=== PATIENT | female | born 1970 | race Caucasian/White ===

== ENCOUNTER 2021-05-24 16:31 | Emergency (ER) | payer OTHER ==
[~2021-05-24] VITALS: Ht 170.2 cm; Wt 94.6 kg
--- NOTE | ~2021-05-24 | EMS ---
[facility] [address] [place] [address] EMS Patient Care Report Name: SHAHID SHIRLEY Room #: REG LEXIS Branham#: [id number] Admission: 05/24/21 Attend Phys: Discharge: Date of : 68 Report #: [id number] THIS REPORT FOR: //name// Report Transmitted: 05/24/2021 16:46 EMS Care Summary [facility] Incident [id number] @ 05/24/2021 15:45 Incident Location [address] [place] [address] Patient SHAHID SHIRLEY Female, 50 Years 1970 Patient Address [address] [place] [address] Patient History None Reported, Patient Allergies No known allergies, Patient Medications None Reported, Chief Complaint Physician states patient had allergic rxn. Disposition Transported No Lights/[place] Reason Allergic Reaction/Stings Transported To [facility] Narrative Arrived to find a 50 yr old male patient laying in a recovery bay at the [facility] in no obvious acute distress on a simple face mask in the care of E[facility]. According to the attending Anesthesiologist the patient had rotator cuff surgery on her right wrist. About 1400 the patient was given an [facility] [address] [place] [address] EMS Patient Care Report Name: SHAHID SHIRLEY Room #: REG LEXIS Branham#: [id number] Admission: 05/24/21 Attend Phys: Discharge: Date of : 68 Report #: [id number] IV dose of "ancef." Around 1430 when the patient was in the recovery room they noticed her blood pressure dropped into the 70s, she had hives, and a "six second run of asystole." Staff states they briefly bagged the patient, gave her a dose of Benadryl, Pepcid, a fluid bolus, and steroids. Staff contacted [facility] and the ED physician ordered .1 mg of Epinephrine IV which shot the patient's blood pressure up to about 200mm/Hg. EMS was contacted a short time later because staff does not have the resources to monitor the patient. Upon our arrival the patient is just complaining of being tired and is very sleepy. Patient does not have any hives, itching, or redness. A: See assessment tab. Physical exam and vital signs were performed by E31 prior to our arrival. Patient was lifted onto the cot. Moved to unit. En route to [facility]. Vital signs and ECG were monitored during transport. We contacted [facility] on the [employer] radio. Patient had a slight downward trend to her BP during the short transport. Patient slept for the transport. Patient was verbally responsive upon arrival at [facility] and the cot sheet was was utilized to transfer the patient in room 10. Report given to ED RN. Patient's physician stated [facility] was the transport destination. Initial Vitals @PTAP: 54,R: 12,BP: 219/93,GCS: 14,Glucose: 133,SpO2: 99,Revised Trauma: 12, @PTAP: 73,R: 14,BP: 112/74,GCS: 14,SpO2: 100,Revised Trauma: 12, @16:21P: 61,R: 16,BP: 97/61,Pain: 0/10,GCS: 14,SpO2: 98,Revised Trauma: 12,IN Suspected: false @16:26P: 66,R: 16,BP: 106/72,Pain: 0/10,GCS: 14,SpO2: 97,Revised Trauma: 12,IN Suspected: false @16:11P: 64,R: 12,BP: 109/69,Pain: 0/10,GCS: 15,Temp: 97.3F,SpO2: 96,Revised Trauma: 12,IN Suspected: false Impression Anaphylaxis Procedures @PTAIV Therapy - Normal Saline (.9% NaCl) 1000cc (20 ga) Site: Forearm-Left Response: UnchangedSucceeded @16:07 Surgical Mask on Patient Response: Unchanged Timeline [employer],IV Therapy - Normal Saline (.9% NaCl) 1000cc 20 ga Site: Forearm-Left,Response: UnchangedSucceeded, [facility] [address] [place] [address] EMS Patient Care Report Name: SHAHID SHIRLEY Room #: REG LEXIS Branham#: [id number] Admission: 05/24/21 Attend Phys: Discharge: Date of : 68 Report #: [id number] [employer],BP: 219/93 M,PULSE: 54,RR: 12 R,SPO2: 99 Ox,ETCO2: ,B,PAIN: ,GCS: 14, [employer],BP: 112/74 M,PULSE: 73,RR: 14 R,SPO2: 100 Ox,ETCO2: ,BG: ,PAIN: ,GCS: 14, 15:43,Call Received 15:43,Psap Call 15:45,Dispatched 15:45,En Route 15:54,On Scene 15:57,At Patient 16:07,Surgical Mask on Patient,Response: Unchanged 16:11,BP: 109/69 M,PULSE: 64,RR: 12 R,SPO2: 96 Ox,ETCO2: ,BG: ,PAIN: 0,GCS: 15, 16:14,Depart Scene 16:21,BP: 97/61 M,PULSE: 61,RR: 16 R,SPO2: 98 Ox,ETCO2: ,BG: ,PAIN: 0,GCS: 14, 16:24,At Destination 16:26,BP: 106/72 M,PULSE: 66,RR: 16 R,SPO2: 97 Ox,ETCO2: ,BG: ,PAIN: 0,GCS: 14, 16:46,Call Closed Disclaimer v1.1 Copyright 2020 [employer] This EMS Care Summary contains data elements from the applicable legal record (which may be displayed differently). It is designed to provide pertinent information for the following purposes: continuity of care, clinical quality, and state data reporting. The complete legal record is available to ED staff and administrators of the receiving hospital in [facility]'s Patient Tracker. All data is provided "as is."
[2021-05-24 18:25] VITALS: BP 109/63
== END 2021-05-24 18:32 | disposition home or self-care (01) ==
LOC: ER 16:31
DX: I45.5 Other specified heart block (principal); T36.1X5A Adverse effect of cephalosporins and other beta-lactam antibiotics, initial encounter; R00.0 Tachycardia, unspecified; Z88.1 Allergy status to other antibiotic agents; Y92.89 Other specified places as the place of occurrence of the external cause